=== PATIENT | male | born 1960 | race African-American/Black ===

== ENCOUNTER 2017-06-27 23:01 | Inpatient (IN) | payer MEDICAID, OTHER ==
[~2017-06-27] VITALS: Ht 172.7 cm; Wt 78.0 kg
[2017-06-27] MEDS ORDERED: SUCCINYLCHOLINE CHLORIDE 200MG/10ML VIAL IV ONE (23:30)
[2017-06-27] MEDS ORDERED: SODIUM CHLORIDE 0.9% 1000ML BAG (SEPSIS BOLUS) IV ONE (23:30)
[2017-06-27] MEDS ORDERED: ETOMIDATE 2MG/ML 10ML VIAL IV ONE (23:30)
[2017-06-27] MEDS ORDERED: MIDAZOLAM HCL 50 MG in DEXTROSE 5% WATER 40 ML IV ONE (23:30)
[2017-06-28] VITALS (78 sets, daily range): BP systolic 75–137; BP diastolic 33–85
[2017-06-28] MEDS ORDERED: ONDANSETRON HCL 4MG/2ML VIAL IV STA (00:26)
[2017-06-28 00:30] LABS: AMMONIA 75 uMol/L (<32)
[2017-06-28] MEDS ORDERED: VANCOMYCIN 1 G PREMIX 200 ML IV ONE (00:30)
[2017-06-28] MEDS ORDERED: PIPERACILLIN/TAZ 3.375G PREMIX 50 ML IV ONE (00:30)
[2017-06-28 00:34] LABS: HEMATOCRIT. 26.1 % (42.0-52.0); HEMOGLOBIN. 8.5 g/dL (14.0-18.0); MEAN CORPUSCULAR HEMOGLOBIN 33.2 pg (28.0-32.0); MEAN CORPUSCULAR VOLUME 101.3 fL (80.0-94.0); PLATELET 184 x1000/uL (130-400); RED BLOOD CELL COUNT 2.57 mill/uL (4.7-6.1); RED CELL DISTRIBUTION WIDTH 14.7 % (11.6-14.6)
[2017-06-28 00:36] LABS: CARBON DIOXIDE 20 mEq/L (21-32); CHLORIDE 105 mEq/L (98-107); TROPONIN I 0.11 ng/mL (0.00-0.04)
[2017-06-28 00:49] LABS: BG BASE EXCESS -12.9 mmol/L (-2.0-2.0); BG CARBOXYHEMOGLOBIN 0.3 % (0.5-1.5); BG DEOXYHEMOGLOBIN 0.5 % (0.0-5.0); BG FRACTION INSPIRED OXYGEN 100; BG METHEMOGLOBIN 0.3 % (0.0-1.5); BG OXYGEN SATURATION 99.5 % (92.0-98.5); BG OXYHEMOGLOBIN 98.9 % (94.0-97.0); BG PH 7.208 (7.350-7.450); BG PO2 498.2 mmHg (75.0-100.0); BG SAMPLE SITE RIGHT BRACHIAL; BG TIDAL VOLUME(mL) 550 mL; BG TOTAL HEMOGLOBIN 9.2 g/dL (12.0-18.0); BG VENT MODE VENT - A/C; BG VENT RATE 12 set
[2017-06-28 01:01] LABS: CLARITY URINE CLEAR (CLEAR); COLOR URINE DARK YELLOW (YELLOW); GLUCOSE URINE 1+ (NEGATIVE); KETONES URINE TRACE (NEGATIVE); LEUKOCYTE ESTERASE URINE NEGATIVE (NEGATIVE); NITRITE URINE NEGATIVE (NEGATIVE); OCCULT BLOOD URINE NEGATIVE (NEGATIVE); PH URINE 5.5 (4.5-8.0); PROTEIN URINE 1+ (NEGATIVE)
[2017-06-28 01:05] LABS: INR 1.3; PROTHROMBIN TIME 13.4 sec (9.4-11.6)
[2017-06-28 01:36] LABS: *AMPHETAMINES SCREEN URINE NEGATIVE (NEGATIVE); *BARBITURATES SCREEN URINE NEGATIVE (NEGATIVE); *BENZODIAZEPINES SCREEN URINE NEGATIVE (NEGATIVE); *COCAINE SCREEN URINE PRESUMTIVE POSITIVE (NEGATIVE); CANNABINOID URINE SCREEN NEGATIVE (NEGATIVE); METHADONE URINE SCREEN NEGATIVE (NEGATIVE); OPIATES URINE SCREEN PRESUMTIVE POSITIVE (NEGATIVE); PHENCYCLIDINE URINE SCREEN NEGATIVE (NEGATIVE)
[2017-06-28 01:48] LABS: NUCLEATED RED BLOOD CELLS 2 /100 WBC
[2017-06-28 01:49] LABS: PLATELET ESTIMATE NORMAL
[2017-06-28] MEDS ORDERED: SODIUM CHLORIDE 0.9% 1,000 ML IV ONE (02:18)
[2017-06-28] MEDS ORDERED: NOREPINEPHRINE 4 MG in DEXT 5% WATER 246 ML IV ONE (02:30)
[2017-06-28] MEDS ORDERED: NOREPINEPHRINE 4 MG in DEXT 5% WATER 246 ML IV SCH (03:00)
[2017-06-28] MEDS: SODIUM CHLORIDE 0.9% 1,000 ML IV SCH ×2 (03:44→13:44)
[2017-06-28] MEDS ORDERED: VANCOMYCIN 1 G PREMIX 200 ML IV SCH (03:45)
[2017-06-28] MEDS ORDERED: PIPERACILLIN/TAZ 3.375G PREMIX 50 ML IV SCH (03:45)
[2017-06-28] MEDS ORDERED: SODIUM BICARBONATE 8.4% 1 MEQ/ML 50ML SYR IV SCH (04:45)
[2017-06-28] MEDS: PIPERACILLIN/TAZ 2.25G PREMIX 50 ML IV SCH ×3 (05:49→17:37)
[2017-06-28] MEDS ORDERED: SUCCINYLCHOLINE CHLORIDE 200MG/10ML VIAL IV ONE (06:00)
[2017-06-28] MEDS ORDERED: ETOMIDATE 2MG/ML 10ML VIAL IV ONE (06:00)
[2017-06-28 06:28] LABS: BASOPHILS % 0.1 % (0.0-2.0); HEMATOCRIT. 24.7 % (42.0-52.0); HEMOGLOBIN. 8.1 g/dL (14.0-18.0); LYMPHOCYTES % 8.8 % (20.0-50.0); MEAN CORPUSCULAR HEMOGLOBIN 33.1 pg (28.0-32.0); MEAN CORPUSCULAR VOLUME 101.4 fL (80.0-94.0); MEAN PLATELET VOLUME 10.3 fl (7.4-10.4); MONOCYTES % 12.7 % (2.0-8.0); NEUTROPHILS % 78.4 % (40.0-76.0); PLATELET 177 x1000/uL (130-400); RED BLOOD CELL COUNT 2.43 mill/uL (4.7-6.1); RED CELL DISTRIBUTION WIDTH 15.1 % (11.6-14.6)
[2017-06-28] MEDS ORDERED: LACTULOSE 20G/30ML UDC PO SCH (08:00)
[2017-06-28] MEDS: ENOXAPARIN 30MG/0.3ML SYR SUBCUT SCH (09:55)
[2017-06-28] MEDS: MIDAZOLAM HCL 50 MG in DEXTROSE 5% WATER 40 ML IV PRN ×2 (09:57→19:08)
[2017-06-28 10:14] LABS: BG BASE EXCESS -1.2 mmol/L (-2.0-2.0); BG CARBOXYHEMOGLOBIN 0.4 % (0.5-1.5); BG DEOXYHEMOGLOBIN 0.3 % (0.0-5.0); BG FRACTION INSPIRED OXYGEN 90; BG HCO3 ACT 23.1 mmol/L (22.0-26.0); BG METHEMOGLOBIN 0.4 % (0.0-1.5); BG OXYGEN SATURATION 99.7 % (92.0-98.5); BG OXYHEMOGLOBIN 98.9 % (94.0-97.0); BG PCO2 36.8 mmHg (35.0-45.0); BG PH 7.416 (7.350-7.450); BG PO2 342.7 mmHg (75.0-100.0); BG SAMPLE SITE RIGHT RADIAL; BG TIDAL VOLUME(mL) 500 mL; BG VENT MODE VENT - A/C; BG VENT RATE 12 set
[2017-06-28] MEDS: NOREPINEPHRINE 4 MG in DEXT 5% WATER 250 ML IV PRN ×2 (12:44→20:47)
[2017-06-28] MEDS: FOLIC ACID 1 MG, THIAMINE HCL 100 MG, MVI, ADULT NO.1 10 ML in DEXT 5%/0.45% NACL 1000M... IV SCH ×4 (13:53)
[2017-06-28] MEDS: LACTULOSE 20G/30ML UDC PO SCH (13:53)
[2017-06-28 17:11] LABS: HEPATITIS B CORE AB IGM NEGATIVE
[2017-06-28 17:13] LABS: HEPATITIS A AB IGM NEGATIVE (NEGATIVE)
[2017-06-28] MEDS: FENTANYL CITRATE/PF 500 MCG in SODIUM CHLORIDE 0.9% 40 ML IV PRN (17:28)
[2017-06-28 18:06] LABS: HEPATITIS B SURFACE ANTIGEN NEGATIVE
[2017-06-28] MEDS: DIGOXIN 500MCG/2ML AMP IV SCH (20:47)
[2017-06-28] MEDS ORDERED: VANCOMYCIN 1250MG in DEXTROSE 5% WATER 250ML IV SCH (21:00)
[2017-06-28] MEDS ORDERED: LACTULOSE 20G/30ML UDC PO PRN (21:00)
[2017-06-29] VITALS (97 sets, daily range): BP systolic 89–132; BP diastolic 49–95
[2017-06-29] MEDS: SODIUM CHLORIDE 0.9% 1,000 ML IV SCH ×2 (00:02→12:48)
[2017-06-29] MEDS: PIPERACILLIN/TAZ 2.25G PREMIX 50 ML IV SCH ×3 (00:05→12:12)
[2017-06-29] MEDS: MIDAZOLAM HCL 50 MG in DEXTROSE 5% WATER 40 ML IV PRN ×2 (05:12→17:27)
[2017-06-29 08:42] LABS: BG BASE EXCESS -0.3 mmol/L (-2.0-2.0); BG CARBOXYHEMOGLOBIN 0.4 % (0.5-1.5); BG DEOXYHEMOGLOBIN 1.4 % (0.0-5.0); BG FRACTION INSPIRED OXYGEN 50; BG HCO3 ACT 23.5 mmol/L (22.0-26.0); BG METHEMOGLOBIN 0.3 % (0.0-1.5); BG OXYGEN SATURATION 98.6 % (92.0-98.5); BG OXYHEMOGLOBIN 97.9 % (94.0-97.0); BG PCO2 34.1 mmHg (35.0-45.0); BG PH 7.456 (7.350-7.450); BG PO2 123.9 mmHg (75.0-100.0); BG SAMPLE SITE RIGHT BRACHIAL; BG TIDAL VOLUME(mL) 550 mL; BG TOTAL HEMOGLOBIN 6.3 g/dL (12.0-18.0); BG VENT MODE VENT - A/C; BG VENT RATE 12 set
[2017-06-29] MEDS: LACTULOSE 20G/30ML UDC PO SCH (08:45)
[2017-06-29] MEDS: ENOXAPARIN 30MG/0.3ML SYR SUBCUT SCH (08:46)
[2017-06-29] MEDS: NOREPINEPHRINE 4 MG in DEXT 5% WATER 250 ML IV PRN ×2 (09:34→20:08)
[2017-06-29] MEDS ORDERED: PANTOPRAZOLE SODIUM 40 MG/VIAL IV SCH (11:00)
[2017-06-29] MEDS: FOLIC ACID 1 MG, THIAMINE HCL 100 MG, MVI, ADULT NO.1 10 ML in DEXT 5%/0.45% NACL 1000M... IV SCH ×4 (13:43)
[2017-06-29] MEDS: DIGOXIN 500MCG/2ML AMP IV SCH (17:25)
[2017-06-29] MEDS ORDERED: ACETAMINOPHEN 650MG/20.3ML UDC NG PRN (18:15)
[2017-06-29 21:46] LABS: INR 1.3; PROTHROMBIN TIME 13.8 sec (9.4-11.6)
[2017-06-29 21:48] LABS: MEAN CORPUSCULAR HEMOGLOBIN 33.2 pg (28.0-32.0); MEAN CORPUSCULAR VOLUME 100.3 fL (80.0-94.0); MEAN PLATELET VOLUME 9.3 fl (7.4-10.4); PLATELET 107 x1000/uL (130-400); RED CELL DISTRIBUTION WIDTH 15.6 % (11.6-14.6)
[2017-06-29 21:52] LABS: HEMOGLOBIN. 6.3 g/dL (14.0-18.0)
[2017-06-29 22:01] LABS: CARBON DIOXIDE 25 mEq/L (21-32); CHLORIDE 110 mEq/L (98-107)
[2017-06-29 22:54] LABS: PLATELET ESTIMATE DECREASED
[2017-06-30] VITALS (86 sets, daily range): BP systolic 88–143; BP diastolic 45–90
[2017-06-30] MEDS: FENTANYL CITRATE/PF 500 MCG in SODIUM CHLORIDE 0.9% 40 ML IV PRN (02:00)
[2017-06-30] MEDS: MIDAZOLAM HCL 50 MG in DEXTROSE 5% WATER 40 ML IV PRN (04:20)
[2017-06-30 05:42] LABS: HEMATOCRIT. 23.2 % (42.0-52.0); HEMOGLOBIN. 7.7 g/dL (14.0-18.0); MEAN CORPUSCULAR HEMOGLOBIN 32.5 pg (28.0-32.0); MEAN CORPUSCULAR VOLUME 98.3 fL (80.0-94.0); MEAN PLATELET VOLUME 9.3 fl (7.4-10.4); PLATELET 102 x1000/uL (130-400); RED BLOOD CELL COUNT 2.36 mill/uL (4.7-6.1); RED CELL DISTRIBUTION WIDTH 18.2 % (11.6-14.6)
[2017-06-30 06:00] LABS: CARBON DIOXIDE 25 mEq/L (21-32); CHLORIDE 109 mEq/L (98-107)
[2017-06-30 08:02] LABS: PLATELET ESTIMATE DECREASED
[2017-06-30 08:37] LABS: BG BASE EXCESS -0.3 mmol/L (-2.0-2.0); BG CARBOXYHEMOGLOBIN 0.6 % (0.5-1.5); BG DEOXYHEMOGLOBIN 3.7 % (0.0-5.0); BG FRACTION INSPIRED OXYGEN 45; BG HCO3 ACT 24.5 mmol/L (22.0-26.0); BG METHEMOGLOBIN 0.4 % (0.0-1.5); BG OXYGEN SATURATION 96.3 % (92.0-98.5); BG OXYHEMOGLOBIN 95.3 % (94.0-97.0); BG PCO2 40.2 mmHg (35.0-45.0); BG PH 7.402 (7.350-7.450); BG PO2 86.9 mmHg (75.0-100.0); BG SAMPLE SITE RIGHT RADIAL; BG TIDAL VOLUME(mL) 500 mL; BG TOTAL HEMOGLOBIN 8.6 g/dL (12.0-18.0); BG VENT MODE VENT - A/C; BG VENT RATE 12 set
[2017-06-30] MEDS: MORPHINE SULFATE 250 MG in DEXT 5% WATER 240 ML IV PRN (12:14)
[2017-06-30] MEDS ORDERED: ACETAMINOPHEN 650MG SUPP PR PRN (22:30)
[2017-07-01] VITALS (10 sets, daily range): BP systolic 78–97; BP diastolic 41–55
[2017-07-01] MEDS: MORPHINE SULFATE 250 MG in DEXT 5% WATER 240 ML IV PRN (12:00)
[2017-07-02] VITALS: BP 92/50
[2017-07-02 04:00] VITALS: BP 76/44
[2017-07-02 08:00] VITALS: BP 79/48
[2017-07-02 12:00] VITALS: BP 87/52
[2017-07-02] MEDS: MORPHINE SULFATE 250 MG in DEXT 5% WATER 240 ML IV PRN ×2 (14:58→23:54)
[2017-07-02 16:00] VITALS: BP 93/50
[2017-07-02 20:00] VITALS: BP 89/55
[2017-07-03] VITALS: BP 100/61
[2017-07-03 04:00] VITALS: BP 92/55
[2017-07-03] MEDS: MORPHINE SULFATE 250 MG in DEXT 5% WATER 240 ML IV PRN ×3 (07:21→22:33)
[2017-07-03 08:00] VITALS: BP 92/54
[2017-07-03 12:00] VITALS: BP 82/54
[2017-07-03 16:00] VITALS: BP 99/66
[2017-07-03 20:00] VITALS: BP 104/57
[2017-07-04] VITALS: BP 88/49
[2017-07-04 04:00] VITALS: BP 90/50
[2017-07-04] MEDS: MORPHINE SULFATE 250 MG in DEXT 5% WATER 240 ML IV PRN ×4 (04:27→22:58)
[2017-07-04 08:00] VITALS: BP 89/49
[2017-07-04 12:00] VITALS: BP 102/48
[2017-07-04 16:00] VITALS: BP 102/48
[2017-07-04 20:00] VITALS: BP 102/51
[2017-07-05] VITALS: BP 114/46
[2017-07-05] MEDS: MORPHINE SULFATE 250 MG in DEXT 5% WATER 240 ML IV PRN ×3 (02:59→11:37)
[2017-07-05 04:00] VITALS: BP 92/34
[2017-07-05 08:00] VITALS: BP 88/51
[2017-07-05 12:00] VITALS: BP 88/54
== END 2017-07-05 13:05 | disposition expired | DRG 720 ==
LOC: ER 23:01 → MICUSO 06-28 01:24 → EDBEDREQTM 06-28 01:25 → EDBEDREQSVC 06-28 01:25 → EDBEDREQ 06-28 01:25 → ENRESERV 06-28 01:28 → 6EST 07-01 01:15
PROVIDERS: ADMIT Family Medicine; ATTEND Family Medicine
PROC: 5A1945Z Respiratory Ventilation, 24-96 Consecutive Hours (ICD-10-PCS; principal; 2017-06-27)
PROC: 0BH17EZ Insertion of Endotracheal Airway into Trachea, Via Natural or Artificial Opening (ICD-10-PCS; 2017-06-28)
PROC: 06HM33Z Insertion of Infusion Device into Right Femoral Vein, Percutaneous Approach (ICD-10-PCS; 2017-06-28)
PROC: 30233N1 Transfusion of Nonautologous Red Blood Cells into Peripheral Vein, Percutaneous Approach (ICD-10-PCS; 2017-06-29)
DX: A41.9 Sepsis, unspecified organism (principal); N17.0 Acute kidney failure with tubular necrosis; J96.20 Acute and chronic respiratory failure, unspecified whether with hypoxia or hypercapnia; R65.21 Severe sepsis with septic shock; G93.40 Encephalopathy, unspecified; E43 Unspecified severe protein-calorie malnutrition; K66.1 Hemoperitoneum; C22.1 Intrahepatic bile duct carcinoma; J18.9 Pneumonia, unspecified organism; Z66 Do not resuscitate; E87.2 Acidosis; K72.90 Hepatic failure, unspecified without coma; F14.90 Cocaine use, unspecified, uncomplicated; D63.8 Anemia in other chronic diseases classified elsewhere; B19.20 Unspecified viral hepatitis C without hepatic coma; F19.10 Other psychoactive substance abuse, uncomplicated; C78.00 Secondary malignant neoplasm of unspecified lung; F17.210 Nicotine dependence, cigarettes, uncomplicated; I10 Essential (primary) hypertension; I24.8 Other forms of acute ischemic heart disease; Z68.26 Body mass index [BMI] 26.0-26.9, adult; Z92.21 Personal history of antineoplastic chemotherapy
CPT/HCPCS: 31500; 36415; 36600; 51702; 70450; 71010; 71250; 76700; 80048; 80053; 80305; 81001; 82140; 82375; 82805; 83605; 84484; 85025; 85610; 86705; 86709; 86803; 86850; 86900; 86920; 87040; 87077; 87186; 87340; 93005; 93970; 94002; 94003; 96361; 96365; 96367; 96375; 99291; C9113; J0330; J1160; J1650; J2250; J2274; J2405; J2543; J3010; J3370; J3411; J3490; J7030; J7050; J7060; P9016; A4315